=== PATIENT | female | born 1990 | race Two or more races ===

== ENCOUNTER 2018-03-03 17:20 | Emergency (ER) | payer OTHER, SELFPAY ==
[~2018-03-03] VITALS: Ht 154.9 cm; Wt 93.8 kg
[2018-03-03] MEDS ORDERED: DIPHENHYDRAMINE 50 MG/ML, 1ML ONE (19:25)
[2018-03-03] MEDS ORDERED: METOCLOPRAMIDE 5 MG/ML, 2ML ONE (19:25)
[2018-03-03] MEDS ORDERED: DIPHENHYDRAMINE 50 MG/ML, 1ML IVPush ONE (19:30)
[2018-03-03] MEDS ORDERED: METOCLOPRAMIDE 5 MG/ML, 2ML IVPush ONE (19:30)
[2018-03-03] MEDS ORDERED: KETOROLAC 30 MG/1 ML ONE (20:59)
[2018-03-03] MEDS ORDERED: KETOROLAC 60 MG/2 ML IVPush ONE (21:00)
[2018-03-03 21:41] VITALS: BP 124/60
== END 2018-03-03 21:44 | disposition home or self-care (01) ==
LOC: ED 21:38
DX: G43.019 Migraine without aura, intractable, without status migrainosus (principal)
CPT/HCPCS: 70450; 96374; 96375; 99284; J1200; J1885; J2765